=== PATIENT | female | born 1945 | race Hispanic/Latino ===

== ENCOUNTER 2021-02-28 11:18 | Emergency (ER) | payer MEDICARE ==
[~2021-02-28] VITALS: Ht 162.6 cm; Wt 70.8 kg
[2021-02-28 11:51] LABS: BASOPHILS % (AUTO) 1.4 % (0.0-5.0); EOSINOPHILS % (AUTO) 4.9 % (0.0-8.0); HEMATOCRIT 42.3 % (36-48); LYMPHOCYTES % (AUTO) 21.5 % (21.0-51.0); MEAN CORPUSCULAR HEMOGLOBIN 29.8 pg (27.0-33.0); MEAN CORPUSCULAR HGB CONC 32.6 g/dL (32.0-36.0); MEAN CORPUSCULAR VOLUME 91.4 fL (79-99); MONOCYTES % (AUTO) 7.4 % (3.0-13.0); NEUTROPHILS % (AUTO) 64.6 % (40.0-77.0); PLATELET COUNT (AUTO) 312 K/uL (130-400); RED BLOOD CELL COUNT(AUTO) 4.63 MIL/uL (4.00-5.50); RED CELL DISTRIBUTION WIDTH 12.1 % (11.0-15.5); WHITE BLOOD COUNT (AUTO) 6.4 K/uL (4.8-10.8)
[2021-02-28 12:02] LABS: CREATININE 1.2 mg/dL (0.5-1.5); POTASSIUM 4.3 mmol/L (3.5-5.1)
[2021-02-28 12:07] LABS: ALBUMIN 3.9 g/dL (3.5-5.0); BILIRUBIN,TOTAL 0.4 mg/dL (0.2-1.0)
[2021-02-28 12:13] LABS: APPEARANCE,URINE Clear (CLEAR); BILIRUBIN,URINE Negative (NEGATIVE); COLOR,URINE Yellow (YELLOW); GLUCOSE, URINE (UA) Negative (NEGATIVE); KETONES,URINE Negative (NEGATIVE); LEUKOCYTE ESTERASE ,URINE Negative (NEGATIVE); NITRATE,URINE Negative (NEGATIVE); OCCULT BLOOD,URINE Negative (NEGATIVE); PROTEIN,URINE Negative (NEGATIVE); UROBILINOGEN,URINE 0.2 mg/dL (0.2-1.0)
[2021-02-28] MEDS ORDERED: LACT10SO32 PO (14:30)
[2021-02-28] MEDS ORDERED: FLUC150T PO (14:33)
[2021-02-28 14:42] VITALS: BP 132/76
== END 2021-02-28 14:43 | disposition home or self-care (01) ==
LOC: EDH 11:18
DX: K59.00 Constipation, unspecified (principal); B37.0 Candidal stomatitis; Z90.710 Acquired absence of both cervix and uterus; Z88.6 Allergy status to analgesic agent; Z88.8 Allergy status to other drugs, medicaments and biological substances
CPT/HCPCS: 36415; 74176; 80053; 81003; 85025

== ENCOUNTER 2021-07-19 12:21 | Observation (INO) | payer MEDICARE ==
[~2021-07-19] VITALS: Ht 162.6 cm; Wt 68.3 kg
[~2021-07-19 12:21] MED LIST: FLUC150T PO; LACT10SO32 PO
[2021-07-19 12:44] LABS: BASOPHILS % (AUTO) 1.3 % (0.0-5.0); EOSINOPHILS % (AUTO) 4.3 % (0.0-8.0); HEMATOCRIT 41.5 % (36-48); LYMPHOCYTES % (AUTO) 23.5 % (21.0-51.0); MEAN CORPUSCULAR HEMOGLOBIN 30.8 pg (27.0-33.0); MEAN CORPUSCULAR HGB CONC 32.8 g/dL (32.0-36.0); MEAN CORPUSCULAR VOLUME 93.9 fL (79-99); MONOCYTES % (AUTO) 7.9 % (3.0-13.0); NEUTROPHILS % (AUTO) 62.8 % (40.0-77.0); PLATELET COUNT (AUTO) 311 K/uL (130-400); RED BLOOD CELL COUNT(AUTO) 4.42 MIL/uL (4.00-5.50); RED CELL DISTRIBUTION WIDTH 12.2 % (11.0-15.5); WHITE BLOOD COUNT (AUTO) 6.3 K/uL (4.8-10.8)
[2021-07-19] MEDS ORDERED: NITROGLYCERIN 1GM OINT 1 INCH/1GM TD ONE (13:00)
[2021-07-19] MEDS ORDERED: ASPIRIN 81MG CHEW TAB PO ONE (13:00)
[2021-07-19 13:04] LABS: ALBUMIN 3.6 g/dL (3.5-5.0); BILIRUBIN,TOTAL 0.5 mg/dL (0.2-1.0); CREATININE 1.6 mg/dL (0.5-1.5); POTASSIUM 3.8 mmol/L (3.5-5.1); TOTAL PROTEIN, SERUM 6.5 g/dL (6.0-8.3)
[2021-07-19 13:22] LABS: B-TYPE NATRIURETIC PEPTIDE 32 pg/mL (0-100)
[2021-07-19] MEDS ORDERED: LORAZEPAM 2 MG/ML 1 ML VIAL IVP ONE (14:00)
[2021-07-19] MEDS ORDERED: METH5TAB4 PO (15:49)
[2021-07-19] MEDS ORDERED: ADDE10 PO (15:49)
[2021-07-19] MEDS ORDERED: TRAM50TA2 PO (15:49)
[2021-07-19] MEDS ORDERED: FLUO20CA30 PO (15:49)
[2021-07-19] MEDS ORDERED: SOLI10TA PO (15:49)
[2021-07-19] MEDS ORDERED: GABA300C PO (15:49)
[2021-07-19] MEDS ORDERED: GINK30CA3 PO (15:49)
[2021-07-19] MEDS ORDERED: LEVO75TA4 PO (15:49)
[2021-07-19] MEDS ORDERED: HEPARIN 5,000 UNIT VIAL SQ SCH (16:00)
[2021-07-19 16:30] VITALS: BP 155/70
[2021-07-19 19:00] VITALS: BP 143/71
[2021-07-19] MEDS: NITROGLYCERIN 1GM OINT 1 INCH/1GM TD SCH (21:21)
[2021-07-19] MEDS: HEPARIN 5,000 UNIT VIAL SQ SCH (21:24)
[2021-07-20] VITALS: BP 118/67
[2021-07-20 03:48] LABS: CREATININE 1.1 mg/dL (0.5-1.5); THYROID STIMULATING HORMONE 2.13 uIU/mL (0.36-3.74)
[2021-07-20] MEDS: NITROGLYCERIN 1GM OINT 1 INCH/1GM TD SCH (06:00)
[2021-07-20 07:36] VITALS: BP 86/42
[2021-07-20] MEDS ORDERED: ATOR20TA65 PO (09:16)
[2021-07-20] MEDS: HEPARIN 5,000 UNIT VIAL SQ SCH (10:10)
[2021-07-20 10:40] LABS: APPEARANCE,URINE Cloudy (CLEAR); BILIRUBIN,URINE Negative (NEGATIVE); COLOR,URINE Yellow (YELLOW); GLUCOSE, URINE (UA) Negative (NEGATIVE); KETONES,URINE Negative (NEGATIVE); LEUKOCYTE ESTERASE ,URINE Large (NEGATIVE); NITRATE,URINE Negative (NEGATIVE); OCCULT BLOOD,URINE Negative (NEGATIVE); PH,URINE 5.5 (5.0-8.0); PROTEIN,URINE Negative (NEGATIVE); UROBILINOGEN,URINE 0.2 mg/dL (0.2-1.0)
[2021-07-20 10:50] LABS: BACTERIA,URINE Rare /HPF (None Seen); RBC,URINE 0-1 /HPF (0-1); SQUAMOUS EPITHELIAL CELL,UR Rare /HPF (0-2)
[2021-07-20 11:20] VITALS: BP 126/75
[2021-07-20 12:54] LABS: CREATININE,URINE RANDOM 130 mg/dL (30-135); SODIUM,URINE RANDOM 44 mmol/l (40-220)
[2021-07-20] MEDS ORDERED: GABAPENTIN 300 MG CAPSULE PO SCH (13:00)
[2021-07-20] MEDS ORDERED: NITROGLYCERIN 1GM OINT 1 INCH/1GM TD SCH (14:00)
[2021-07-20] MEDS ORDERED: ATORVASTATIN 20 MG TABLET PO SCH (21:00)
[2021-07-20] MEDS ORDERED: TRAMADOL HCL 50 MG TABLET PO SCH (21:00)
[2021-07-21] MEDS ORDERED: LEVOTHYROXINE 75 MCG TABLET PO SCH (09:00)
[2021-07-21] MEDS ORDERED: FLUOXETINE HCL 20 MG CAPSULE PO SCH (09:00)
[2021-07-21] MEDS ORDERED: **HM** VESICARE 10MG PO SCH (09:00)
== END 2021-07-20 14:05 | disposition home or self-care (01) ==
LOC: EDH 12:21 → INTOOBSV 14:10 → EDHIP 14:10 → 2AH 16:45
PROVIDERS: ADMIT Hospitalist; ATTEND Hospitalist
DX: R07.89 Other chest pain (principal); N17.9 Acute kidney failure, unspecified; R55 Syncope and collapse; R42 Dizziness and giddiness; G89.29 Other chronic pain; M54.9 Dorsalgia, unspecified; E03.9 Hypothyroidism, unspecified; E78.5 Hyperlipidemia, unspecified; I25.10 Atherosclerotic heart disease of native coronary artery without angina pectoris; K22.4 Dyskinesia of esophagus; Z90.710 Acquired absence of both cervix and uterus; Z79.899 Other long term (current) drug therapy; Z98.890 Other specified postprocedural states; Z79.82 Long term (current) use of aspirin
CPT/HCPCS: 36415 ×2; 71045; 80053; 80061; 81001; 82550; 82565; 82570; 83880; 84295; 84300; 84443; 84484; 85025; 85651; 87088; 93005; 93306; 96372 ×2; 96374; 97161; 99285; G0378 ×3; J1644 ×2; J2060; 93356

== ENCOUNTER 2022-08-24 15:14 | Emergency (ER) | payer MEDICARE ==
[~2022-08-24] VITALS: Ht 162.6 cm; Wt 69.9 kg
[~2022-08-24 15:14] MED LIST changes: +ADDE10 PO; +ATOR20TA65 PO; -FLUC150T PO; +FLUO20CA30 PO; +GABA300C PO; +GINK30CA3 PO; -LACT10SO32 PO; +LACT10SO85 PO; +LEVO75TA4 PO; +METH5TAB4 PO; +SOLI10TA PO; +TRAM50TA2 PO
[2022-08-24 15:47] LABS: BASOPHILS % (AUTO) 0.8 % (0.0-5.0); EOSINOPHILS % (AUTO) 1.4 % (0.0-8.0); HEMATOCRIT 41.5 % (36-48); LYMPHOCYTES % (AUTO) 17.7 % (21.0-51.0); MEAN CORPUSCULAR HEMOGLOBIN 29.9 pg (27.0-33.0); MEAN CORPUSCULAR VOLUME 90.6 fL (79-99); MONOCYTES % (AUTO) 6.7 % (3.0-13.0); NEUTROPHILS % (AUTO) 73.3 % (40.0-77.0); PLATELET COUNT (AUTO) 291 K/uL (130-400); RED BLOOD CELL COUNT(AUTO) 4.58 MIL/uL (4.00-5.50); RED CELL DISTRIBUTION WIDTH 12.9 % (11.0-15.5); WHITE BLOOD COUNT (AUTO) 7.3 K/uL (4.8-10.8)
[2022-08-24 16:05] LABS: CREATININE 1.1 mg/dL (0.5-1.5); POTASSIUM 4.2 mmol/L (3.5-5.1)
[2022-08-24 16:10] LABS: ALBUMIN 3.4 g/dL (3.5-5.0); TOTAL PROTEIN, SERUM 6.6 g/dL (6.0-8.3)
[2022-08-24 16:14] LABS: APPEARANCE,URINE CLEAR (CLEAR); BILIRUBIN,URINE NEGATIVE (NEGATIVE); COLOR,URINE LIGHT-YELLOW (YELLOW); GLUCOSE, URINE (UA) NEGATIVE (NEGATIVE); KETONES,URINE NEGATIVE (NEGATIVE); LEUKOCYTE ESTERASE ,URINE 75 Leu/uL (NEGATIVE); NITRATE,URINE NEGATIVE (NEGATIVE); OCCULT BLOOD,URINE NEGATIVE (NEGATIVE); PROTEIN,URINE NEGATIVE (NEGATIVE); UROBILINOGEN,URINE 0.2 mg/dL (0.2-1.0)
[2022-08-24 16:38] LABS: BACTERIA,URINE RARE /HPF (None Seen); MUCUS,URINE RARE LPF (None Seen); RBC,URINE 0-1 /HPF (0-1); SQUAMOUS EPITHELIAL CELL,UR RARE /HPF (0-2)
[2022-08-24] MEDS ORDERED: NITROGLYCERIN 1GM OINT 1 INCH/1GM TD ONE (17:00)
[2022-08-24] MEDS ORDERED: KETOROLAC 15MG/ML VIAL (15MG/ML) ONE (18:47)
[2022-08-24 19:29] VITALS: BP 143/69
== END 2022-08-24 20:11 | disposition home or self-care (01) ==
LOC: EDH 15:14
DX: R07.89 Other chest pain (principal); I25.10 Atherosclerotic heart disease of native coronary artery without angina pectoris; Z79.899 Other long term (current) drug therapy; Z79.890 Hormone replacement therapy; Z90.710 Acquired absence of both cervix and uterus
CPT/HCPCS: 99285; 96374; 71045; 84484 ×2; 80053; 85025; 87088; 81001; 36415; 93005 ×3; J1885

== ENCOUNTER → 2022-12-31 | Outpatient (CLI) | payer MEDICARE ==
[2022-12-31 12:28] LABS: ALBUMIN 3.7 g/dL (3.5-5.0); BILIRUBIN,TOTAL 0.4 mg/dL (0.2-1.0); POTASSIUM 3.6 mmol/L (3.5-5.1); TOTAL PROTEIN, SERUM 6.7 g/dL (6.0-8.3)
== END | disposition home or self-care (01) ==
LOC: LAB 11:05
PROVIDERS: ATTEND Internal Medicine Cardiovascular Disease
DX: E78.5 Hyperlipidemia, unspecified (principal)
CPT/HCPCS: 36415; 80053; 80061

== ENCOUNTER → 2023-01-23 | Outpatient (CLI) | payer MEDICARE ==
[~2023-01-23] MED LIST changes: +IOHEXOL 350 MG/ML 100ML INFUS..BTL IV ONE
== END | disposition home or self-care (01) ==
LOC: RAH 09:45
PROVIDERS: ATTEND Internal Medicine Cardiovascular Disease
DX: I25.118 Atherosclerotic heart disease of native coronary artery with other forms of angina pectoris (principal)
CPT/HCPCS: 75574; Q9967